=== PATIENT | female | born 1980 ===

== ENCOUNTER 2017-06-01 21:26 | Emergency (ER) | payer OTHER ==
[2017-06-01 21:32] VITALS: BMI 25.0
[2017-06-01 21:33] VITALS: RESP 16
[2017-06-01] MEDS ORDERED: Aspirin 325 mg EC Tablets PO STA (21:36)
[2017-06-01 21:41] VITALS: TEMP 97.8
[2017-06-01] MEDS ORDERED: Albuterol-Ipratrop 3 mg / 0.5 (3 ml) UD IH STA (22:30)
--- NOTE | 2017-06-01 22:58 | ED PDOC ---
Arrival/HPI - General Chief Complaint: Abnormal Skin Integrity Time Seen by Provider: 06/01/17 21:28 Historian: Patient - History of Present Illness Narrative History of Present Illness (Text): 06/01/17 21:30 A 36 year old female, whose past medical history includes asthma and migraines, presents to the emergency department complaining of allergic reaction. Patient reports her skin is red and experiences a burning sensation. She took 1000 mg of Niacin, which resulted in Niacin flushing. Patient denies of any other complaints. Time/Duration: Prior to Arrival Symptom Onset: Sudden Symptom Course: Unchanged Quality: Burning Activities at Onset: Rest, Light Context: Home Past Medical History - Provider Review Nursing Documentation Reviewed: Yes - Cardiac Hx Cardiac Disorders: No - Pulmonary Hx Asthma: Yes - Neurological Hx Migraine: Yes - HEENT Hx HEENT Disorder: No - Renal Hx Renal Disorder: No - Endocrine/Metabolic Hx Endocrine Disorders: No - Hematological/Oncological Hx Blood Disorders: No - Integumentary Hx Dermatological Disorder: No - Musculoskeletal/Rheumatological Hx Musculoskeletal Disorders: No - Gastrointestinal Hx Gastrointestinal Disorders: No - Genitourinary/Gynecological Hx Genitourinary Disorders: No - Psychiatric Hx Psychophysiologic Disorder: No Hx Substance Use: No - Anesthesia Hx Anesthesia: No Family/Social History - Physician Review Nursing Documentation Reviewed: Yes Family/Social History: No Known Family HX Smoking Status: Never Smoked Hx Alcohol Use: No Hx Substance Use: No Allergies/Home Meds Allergies/Adverse Reactions: Allergies No Known Allergies Allergy (Verified 06/01/17 21:32) Home Medications: Home Meds Medication Instructions Recorded Confirmed Albuterol Sulfate [Proair Hfa] 1 puff INH PRN PRN 06/01/17 06/01/17 Butalb/Acetaminophen/Caffeine 1 tab PO PRN PRN 06/01/17 06/01/17 [Zebutal 50-325-40 mg Capsule] Review of Systems - Physician Review All systems were reviewed & negative as marked: Yes - Review of Systems Constitutional: absent: Fevers, Night Sweats Respiratory: absent: SOB, Cough Gastrointestinal: absent: Abdominal Pain, Diarrhea, Nausea, Vomiting Skin: Other (erythema). absent: Pruritis Physical Exam Vital Signs Reviewed: Yes Vital Signs Temp Pulse Resp BP Pulse Ox 06/01/17 23:27 95 H 16 102/58 L 99 06/01/17 21:34 97.8 F 08/25/17 21:33 101 H 16 121/69 100 Temperature: Afebrile Blood Pressure: Normal Pulse: Regular Respiratory Rate: Normal Appearance: Positive for: Well-Appearing Pain Distress: None Mental Status: Positive for: Alert and Oriented X 3 - Systems Exam Head: Present: Atraumatic, Normocephalic Pupils: Present: PERRL Extroacular Muscles: Present: EOMI Conjunctiva: Present: Normal Mouth: Present: Moist Mucous Membranes Neck: Present: Normal Range of Motion Respiratory/Chest: Present: Clear to Auscultation, Good Air Exchange, Respiratory Distress Cardiovascular: Present: Regular Rate and Rhythm, Normal S1, S2. No: Murmurs Abdomen: Present: Normal Bowel Sounds. No: Tenderness, Distention, Peritoneal Signs Back: Present: Normal Inspection Upper Extremity: Present: Normal Inspection. No: Cyanosis, Edema Lower Extremity: Present: Normal Inspection. No: Edema Neurological: Present: GCS=15, CN II-XII Intact, Speech Normal Skin: Present: Other (flushed skin) Psychiatric: Present: Alert, Oriented x 3, Normal Insight, Normal Concentration Medical Decision Making ED Course and Treatment: 06/01/17 21:36 Impression: 36 year old female with niacin flush after taking 1000 mg Niacin. Physical exam shows flushed skin Plan: -- Benadryl -- Duoneb -- Ecotrin -- Reassess and disposition Progress Notes: 06/02/17 06:44 - Medication Orders Current Medication Orders: Discontinued Medications Albuterol/Ipratropium (Duoneb 3 Mg/0.5 Mg (3 Ml) Ud) 3 ml IH STAT STA Stop: 06/01/17 22:31 Last Admin: 06/01/17 22:41 Dose: 3 ml Aspirin (Ecotrin) 325 mg PO STAT STA Stop: 06/01/17 21:37 Last Admin: 06/01/17 21:45 Dose: 325 mg Diphenhydramine HCl (Benadryl) 25 mg PO STAT STA Stop: 06/01/17 21:37 Last Admin: 06/01/17 21:45 Dose: - Scribe Statement The provider has reviewed the documentation as recorded by the Tiara Gomez Provider Scribe Attestation: All medical record entries made by the Scribsimon were at my direction and personally dictated by me. I have reviewed the chart and agree that the record accurately reflects my personal performance of the history, physical exam, medical decision making, and the department course for this patient. I have also personally directed, reviewed, and agree with the discharge instructions and disposition. Disposition/Present on Arrival - Present on Arrival Any Indicators Present on Arrival: No History of DVT/PE: No History of Uncontrolled Diabetes: No Urinary Catheter: No History of Decub. Ulcer: No History Surgical Site Infection Following: None - Disposition Have Diagnosis and Disposition been Completed?: Yes Diagnosis: Adverse reaction to niacin Disposition: HOME/ ROUTINE Disposition Time: 23:30 Condition: GOOD Discharge Instructions (ExitCare): Adverse Drug Reaction (ED) Forms: [employer] (Kyr[place]z)
[2017-06-01 23:32] VITALS: BP 102/58; PULSE 95; O2SAT 99
== END 2017-06-01 23:36 | disposition home or self-care (01) ==
LOC: ED 21:26
DX: T46.7X5A Adverse effect of peripheral vasodilators, initial encounter (principal); Y92.89 Other specified places as the place of occurrence of the external cause; J45.909 Unspecified asthma, uncomplicated